=== PATIENT | male | born 1970 | race Caucasian/White ===

== ENCOUNTER 2017-12-17 00:28 | Observation (INO) | payer SELFPAY ==
[2017-12-17 01:31] LABS: #Basophils 0.1 thou/uL (0.0-0.2); #Eosinphils 0.3 thou/uL (0.0-0.7); #Lymphocytes 1.9 thou/uL (1.20-3.40); #Monocytes 0.6 thou/uL (0.11-0.59); #Neutrophils 5.1 thou/uL (1.40-6.50); %Basophils 1.1 % (0.0-1.0); %Eosinophils 3.4 % (0.0-10.0); %Lymphocytes 23.5 % (21.0-51.0); %Monocytes 7.7 % (0.0-10.0); %Neutrophils 64.3 % (42.0-75.0); Hemoglobin 13.4 g/dL (14.0-18.0); Mean Corpuscular HGB CONC 33.8 g/dL (32.0-36.0); Mean Corpuscular Hemoglobin 31.3 pg (27.0-31.0); Mean Corpuscular Volume 92.7 fL (78.0-98.0); Mean Platelet Volume 6.5 fL (7.4-10.4); Platelet Count 323 thou/uL (130-400); RBC Distribution Width 11.4 % (11.5-14.5); Red Blood Cell (RBC) Count 4.27 mill/uL (4.70-6.10); White Blood Cell (WBC) Count 7.9 thou/uL (4.8-10.8)
[2017-12-17 01:54] LABS: ALT (SGPT) 21 U/L (8-55); AST (SGOT) 23 U/L (5-34); Acetaminophen Less than 6.0 mcg/mL (10.0-30.0); Albumin 4.1 g/dL (3.5-5.0); Alcohol Less than 10 mg/dL (Less than 10); Alkaline Phosphatase 60 U/L (40-150); Anion Gap 11 mmol/L (10-20); BUN (Urea Nitrogen) 11 mg/dL (8.9-20.6); Bilirubin, Total 0.5 mg/dL (0.2-1.2); CK (CPK) 192 U/L (30-200); Calc. Creatinine Clearance 0 mL/min (70-130); Calcium 9.3 mg/dL (7.8-10.44); Carbon Dioxide 27 mmol/L (22-29); Chloride 101 mmol/L (98-107); Estimated GFR-MDRD 67; Globulin 2.9 g/dL (2.4-3.5); Glucose 114 mg/dL (70-105); Salicylate Less than 8.0 mg/dL (15.0-30.0); Sodium 136 mmol/L (136-145)
[2017-12-17 01:59] LABS: Potassium 2.7 mmol/L (3.5-5.1)
[2017-12-17] MEDS ORDERED: Potassium Chloride 20 MEQ TAB ONE (02:31)
[2017-12-17] MEDS ORDERED: Magnesium 2 GM/50 ML 2 GM in Premix Bag 1 BAG IVPB SCH (02:45)
[2017-12-17 03:45] LABS: Bilirubin Negative (Negative); Blood, Urine Negative (Negative); Clarity CLEAR (Clear); Glucose, Urine (Dipstick) Negative (Negative); Leukocyte Negative (Negative); Nitrite Negative (Negative); Protein, Urine (Dipstick) Negative (Neg-Trace); Specific Gravity, Urine 1.012 (1.002-1.036); Urobilinogen 0.2 mg/dL (0.2-1.0); pH, Urine 6.5 (5.0-9.0)
[2017-12-17 03:53] LABS: Amphetamine Not Detected (NotDetected); Barbiturates Screen Not Detected (NotDetected); Benzodiazepine Screen Not Detected (NotDetected); Cocaine Metabolite Screen Detected (NotDetected); Medtox Reader # READER 4; Methadone Not Detected (NotDetected); Methamphetamine Not Detected (NotDetected); Opiate Screen Not Detected (NotDetected); Oxycodone Screen Not Detected (NotDetected); Phencyclidine (PCP) Not Detected (NotDetected); THC/Cannabinoid Screen Not Detected (NotDetected); Tricyclic Screen Not Detected (NotDetected)
[2017-12-17 03:54] LABS: Medtox Control Line Valid? VALID (VALID)
[2017-12-17] MEDS ORDERED: D5 1/2 NS w/20 mEq KCL 1,000 ML ONE (04:35)
[2017-12-17 06:02] VITALS: BMI 25.1
[2017-12-17 07:01] LABS: Troponin I Less than 0.010 ng/mL (< 0.028)
[2017-12-17] MEDS ORDERED: Calcium Carbonate 500 MG ChewTAB PO PRN (08:26)
[2017-12-17] MEDS ORDERED: Loratadine 10 MG TAB PO PRN (08:26)
[2017-12-17] MEDS ORDERED: Bisacodyl 5 MG TAB PO PRN (08:26)
[2017-12-17] MEDS ORDERED: Acetaminophen 325 MG TAB PO PRN (08:26)
[2017-12-17] MEDS ORDERED: Lorazepam 1 MG TAB PO PRN (08:26)
[2017-12-17] MEDS ORDERED: Benzonatate 100 MG CAP PO PRN (08:26)
[2017-12-17] MEDS ORDERED: Ondansetron HCl/PF 4 MG/2 ML Vial IVP PRN (08:26)
[2017-12-17] MEDS ORDERED: traMADol HCl 50 MG TAB PO PRN (08:26)
[2017-12-17] MEDS ORDERED: Mag-Al 1200 mg/1200 mg/30 ML UDCUP PO PRN (08:26)
[2017-12-17] MEDS ORDERED: Nitroglycerin 0.4 MG TAB (25 Tab Bottle) SL PRN (08:26)
[2017-12-17] MEDS ORDERED: Diabetic Tussin 200 MG/10 ML UDCUP PO PRN (08:26)
[2017-12-17] MEDS ORDERED: hydrALAZINE 20 MG/ML VIAL SLOW IVP PRN (08:26)
[2017-12-17] MEDS ORDERED: Senokot 8.6 MG TAB PO PRN (08:26)
[2017-12-17] MEDS ORDERED: Enoxaparin Sodium 40 MG/0.4 ML SYRINGE SC SCH (09:00)
[2017-12-17 09:32] LABS: Potassium 3.4 mmol/L (3.5-5.1)
[2017-12-17 09:43] LABS: Troponin I Less than 0.010 ng/mL (< 0.028)
[2017-12-17] MEDS: Sodium Chloride 0.9% 1,000 ML IV SCH ×2 (10:10→12:06)
[2017-12-17 12:18] VITALS: BP 128/73; TEMP 98.9
[2017-12-17 12:37] LABS: Troponin I Less than 0.010 ng/mL (< 0.028)
--- NOTE | 2017-12-17 13:00 | CON ---
DATE OF CONSULTATION: 12/17/2017 HISTORY OF PRESENT ILLNESS: Patient is a 47-year-old gentleman, who presented with cocaine detoxification and was noted to have a slow heart rate. The patient has no previous cardiac history. The patient denies having any history of lightheadedness or dizziness. The patient denies having any history of syncope. The patient was admitted for cocaine use. He was noted to have a slow junctional rhythm. The patient denies having any chest discomfort. He denies having any PND or orthopnea. PAST MEDICAL HISTORY: Cocaine abuse. PAST SURGICAL HISTORY: Hiatal hernia surgery. MEDICATIONS: None. SOCIAL HISTORY: Long history of cocaine use. FAMILY HISTORY: Positive family history of coronary artery disease. ALLERGIES: No known drug allergies. REVIEW OF SYSTEMS: Ten-point system, otherwise, unremarkable. He does report decreased p.o. intake. PHYSICAL EXAMINATION: GENERAL: This is a well-developed gentleman in no acute distress. VITAL SIGNS: Blood pressure 103/53. NECK: No jugular venous distention. LUNGS: Clear to auscultation. HEART: Regular rate and rhythm, normal S1 and S2. ABDOMEN: Nondistended. EXTREMITIES: No edema. SKIN: Warm and dry. NEUROLOGIC EXAM: Nonfocal. VASCULAR: Radial pulses 2+. LABORATORY RESULTS: Sodium 136, potassium 2.7, chloride 101, bicarbonate 27, BUN 11, creatinine is 1.17, glucose 114, troponin less than 0.01. TSH 1.22. EKG reveals an ectopic atrial rhythm. Follow up EKG revealed marked sinus bradycardia. IMPRESSION: 1. Ectopic atrial rhythm. 2. Cocaine use. 3. Marked hypokalemia. This gentleman presents with an ectopic atrial rhythm. The patient is asymptomatic. The patient was markedly hypokalemic. We would replace his potassium. The life-threatening consequences of cocaine use have been explained to the patient. PLAN: 1. Replace potassium. 2. Monitor on telemetry. [facility]
--- NOTE | 2017-12-17 13:19 | HP ---
DATE OF ADMISSION: 12/17/2017 PRIMARY CARE PHYSICIAN: None. CHIEF COMPLAINT: "Needs cocaine detoxification". HISTORY OF PRESENT ILLNESS: Mr. Mccurdy is a 47-year-old male without any significant past medical hi story or medical followup, who walked into the ER for cocaine detoxification. He reports that he has been sober for 5 years, but started using again for 6 days and was feeling bad. He has not been eat ing or drinking and feeling very tired. He has not been able to sleep. He complained of generalized weakness, but denies any chest pain, palpitation, shortness of breath. He denies any recent illness es. He denied any other medical issues. In the emergency room, he was hemodynamically stable with a blood pressure 115/58 and a pulse of 57. His potassium was found to be low at 2.7 and there was some concern of junctional rhythm and sinus b radycardia in the EKG, so he was admitted to Medicine Service for further workup and observation. At the time of my evaluation, the patient is sleeping soundly and has no complaints when woken up. C ardiology has been consulted. Serial cardiac enzymes have been done and unremarkable. Repeat potass ium is 3.4 at 9:00 this morning. TSH is normal. PAST MEDICAL HISTORY: None. PAST SURGICAL HISTORY: Surgery for hiatal hernia in 1996. FAMILY HISTORY: Significant for coronary artery disease in both parents. His father ended up having a 4-vessel bypass surgery. He denies any family history of diabetes, hypertension, or cancer. PSYCHIATRIC HISTORY: None. SOCIAL HISTORY: Currently using drugs, but denies any IV drug use. He chews tobacco and denies any alcohol intake. ALLERGIES: No known medication allergies. CURRENT MEDICATIONS: None. REVIEW OF SYSTEMS: A 12-point review of system is done, it is negative except for those mentioned in the history and physical. LABORATORY DATA: CBC unremarkable. Serum chemistries unremarkable except for potassium at 2.7. Mag nesium was checked and was normal at 2.2. Serial cardiac enzymes, troponin less than 0.010 x3. TSH normal. Repeat potassium 3.4. Urinalysis is unremarkable. Urine drug screen positive for cocaine. A 12-lead EKG by my review shows sinus bradycardia with heart rate in the 50s with incomplete right b undle branch block. ST segments and T waves are normal. PHYSICAL EXAMINATION: VITAL SIGNS: Most recent vital signs, temperature 98.9, pulse 69-114, respirations 20, saturating 94 % to 96% on room air, and blood pressure 128/73. GENERAL: No acute distress, awake, alert, oriented x3. HEENT: Mucous membrane is moist and pink. No oropharyngeal exudate or erythema. Head is normocepha lic, atraumatic. Pupils equal, reactive to light and accommodation. Extraocular movement intact. NECK: Supple without any lymphadenopathy, JVD or bruit. CHEST: Clear to auscultation without any wheezing, rales, or rhonchi. Rate and rhythm is regular wi thout any murmur, rubs, or gallops. ABDOMEN: Soft, nontender, nondistended, positive bowel sounds. EXTREMITIES: Free of any cyanosis, clubbing, or edema. NEUROLOGIC: Nonfocal. SKIN: Free of any rashes or bruises. I feel warm and dry to touch. PSYCHIATRIC: Normal affect. IMPRESSION AND PLAN: 1. Hypokalemia, likely secondary to poor p.o. intake. Potassium has been supplemented and we will r echeck as the last value was done while he was getting the potassium supplementation. No other lab a bnormalities to suggest any inherent electrolyte metabolic issues. 2. Question of sinus bradycardia and junctional rhythm. Likely explained by either electrolyte abno rmalities with hypokalemia versus cocaine ingestion. I have ordered a transthoracic echocardiogram. No evidence to suggest ACS. Continue to monitor calcium and magnesium and follow the Cardiology rec ommendations. The patient has been educated about cocaine abstinence. 3. Cocaine abuse. The patient will be provided resources in the community for cocaine and substance rehabilitation. 4. Start gentle IV fluid and monitor on telemetry unit. 5. Code status: FULL CODE. 6. Deep venous thrombosis and gastrointestinal prophylaxis. DISPOSITION: Mr. Mccurdy is currently being admitted for hypokalemia and normal junctional rhythm/sin us bradycardia. If his potassium is improved and Cardiology clears him, he will be discharged later home today.
[2017-12-17 13:55] LABS: Potassium 3.7 mmol/L (3.5-5.1)
--- NOTE | 2017-12-18 01:59 | DIS ---
DATE OF ADMISSION: 12/17/2017 DATE OF DISCHARGE: 12/17/2017 CONDITION AT THE TIME OF DISCHARGE: Stable and improved. DISCHARGE DIAGNOSES: 1. Hypokalemia. 2. Sinus bradycardia secondary to cocaine abuse and hypokalemia. 3. Cocaine abuse. HOSPITAL COURSE: The patient was admitted earlier this morning when he presented to the ER for [facility] detoxification. Resources were provided. He was found to be hypokalemic, which was replaced and the discharge potassium was 3.7. He had some junctional rhythm on the EKG and Cardiology was consulted. Echo was ordered. Cardiology , Dr. Rivera has seen the patient and cleared him for discharge. Dr. Rivera and myself advised t he patient to stay off of cocaine and his arrhythmia was likely secondary to hypokalemia, which has b een reversed. Echocardiogram report is pending at this time of discharge. He is instructed to follow up with [facility] physician in one to two weeks for the result. He will establish care. Resources were provid ed for detox and substance abuse programs. Please see admission history and physical for further det ail including [id number] interaction.
--- NOTE | 2017-12-22 19:40 | EKG ---
Test Reason : Blood Pressure : / mmHG Vent. Rate : 048 BPM Atrial Rate : 048 BPM P-R Int : 166 ms QRS Dur : 112 ms QT Int : 432 ms P-R-T Axes : -81 012 -04 degrees QTc Int : 385 ms Unusual P axis, possible ectopic atrial bradycardia Abnormal ECG When compared with ECG of 17-DEC-2017 02:11, (Unconfirmed) Ectopic atrial rhythm has replaced Sinus rhythm Incomplete right bundle branch block is no longer Present Criteria for Septal infarct are no longer Present Confirmed by Travis JAVED ([id number]) on 12/22/2017 7:40:20 PM Referred By: ALEKSEY Confirmed By:Travis JAVED
== END 2017-12-17 18:45 | disposition home or self-care (01) ==
LOC: ERS 00:28 → 2SW 03:10
PROVIDERS: ADMIT Hospitalist; ATTEND Hospitalist
DX: E87.6 Hypokalemia (principal); F14.188 Cocaine abuse with other cocaine-induced disorder; R00.1 Bradycardia, unspecified; F17.220 Nicotine dependence, chewing tobacco, uncomplicated
CPT/HCPCS: 36415; 80053; 80306; 80307; 81003; 82550; 83735; 84443; 84484; 85025; 93005; 93010; 93306; 96361; 96365; 96366; 96368; 96372; 99406; G0378; J1650

== ENCOUNTER 2018-01-25 23:46 | Emergency (ER) | payer OTHER, SELFPAY ==
[2018-01-26] MEDS ORDERED: Acetaminophen 500 MG TAB ONE (00:43)
[2018-01-26] MEDS ORDERED: Ketorolac Tromethamine 60 MG/2 ML VIAL ONE (00:43)
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
== END 2018-01-26 01:22 | disposition home or self-care (01) ==
LOC: ERS 23:46
DX: S16.1XXA Strain of muscle, fascia and tendon at neck level, initial encounter (principal); F17.210 Nicotine dependence, cigarettes, uncomplicated; V43.92XA Unspecified car occupant injured in collision with other type car in traffic accident, initial encounter; W22.10XA Striking against or struck by unspecified automobile airbag, initial encounter
CPT/HCPCS: 70450; 72125; 96372; G0390; J1885

== ENCOUNTER 2018-11-15 12:01 | Inpatient (IN) | payer OTHER, SELFPAY ==
--- NOTE | 2018-11-15 12:52 | RAD ---
2 VIEWS RIGHT HIP: Date: 11/15/18 COMPARISON: None. HISTORY: Fall, trauma, pain. FINDINGS: There is an acute, impacted fracture involving the femoral neck at the base of the femoral head. No e vidence for dislocation. IMPRESSION: Femoral neck fracture. Orthopedic consultation advised. POS: OFF
[2018-11-15 13:12] LABS: #Basophils 0.1 thou/uL (0.0-0.2); #Eosinphils 0.1 thou/uL (0.0-0.7); #Lymphocytes 2.4 thou/uL (1.20-3.40); #Monocytes 0.4 thou/uL (0.11-0.59); #Neutrophils 5.1 thou/uL (1.40-6.50); %Basophils 0.7 % (0.0-1.0); %Eosinophils 1.1 % (0.0-10.0); %Lymphocytes 29.5 % (21.0-51.0); %Neutrophils 63.8 % (42.0-75.0); Hemoglobin 12.9 g/dL (14.0-18.0); Mean Corpuscular HGB CONC 34.9 g/dL (32.0-36.0); Mean Corpuscular Hemoglobin 31.6 pg (27.0-31.0); Mean Corpuscular Volume 90.4 fL (78.0-98.0); Mean Platelet Volume 6.9 fL (7.4-10.4); Platelet Count 257 thou/uL (130-400); RBC Distribution Width 11.9 % (11.5-14.5); Red Blood Cell (RBC) Count 4.07 mill/uL (4.70-6.10)
[2018-11-15] MEDS ORDERED: Morphine 4 MG/ML VIAL ONE (13:13)
[2018-11-15 13:36] LABS: ALT (SGPT) 20 U/L (8-55); AST (SGOT) 15 U/L (5-34); Albumin 4.2 g/dL (3.5-5.0); Alkaline Phosphatase 67 U/L (40-150); Anion Gap 14 mmol/L (10-20); BUN (Urea Nitrogen) 8 mg/dL (8.9-20.6); Bilirubin, Total 0.6 mg/dL (0.2-1.2); Calc. Creatinine Clearance 0 mL/min (70-130); Calcium 9.3 mg/dL (7.8-10.44); Carbon Dioxide 28 mmol/L (22-29); Chloride 97 mmol/L (98-107); Estimated GFR-MDRD 78; Globulin 2.6 g/dL (2.4-3.5); Glucose 93 mg/dL (70-105); Protein, Total 6.8 g/dL (6.0-8.3); Sodium 136 mmol/L (136-145)
[2018-11-15 13:39] LABS: Potassium 2.9 mmol/L (3.5-5.1)
--- NOTE | 2018-11-15 13:48 | RAD ---
EXAM: Chest one view: HISTORY: Right hip fracture COMPARISON: 03/30/2014 FINDINGS: Heart size: Within normal limits. Lungs: Clear of acute process. No evidence for pneumonia, pleural effusion, acute edema, or pneumothorax, or other significant acute process. IMPRESSION: No significant acute intrathoracic disease.
[2018-11-15 14:02] LABS: INR-International Normal Ratio 1.2; PTT 29.1 SEC (22.9-36.1); Prothrombin Time 14.8 SEC (12.0-14.7)
[2018-11-15 14:08] LABS: Magnesium 1.7 mg/dL (1.6-2.6)
[2018-11-15] MEDS ORDERED: Potassium Chloride 20 MEQ TAB ONE (14:17)
[2018-11-15] MEDS ORDERED: hydrALAZINE 20 MG/ML VIAL SLOW IVP PRN (14:34)
[2018-11-15] MEDS ORDERED: Dextrose 5% in Water 1,000 ML IV PRN (14:34)
[2018-11-15] MEDS ORDERED: Dextrose 50% Abboject 50 ML SYRINGE SLOW IVP PRN (14:34)
[2018-11-15] MEDS ORDERED: Morphine 2 MG/ML SYRINGE SLOW IVP PRN (14:34)
[2018-11-15] MEDS ORDERED: Ondansetron PF 4 MG/2 ML Vial IVP PRN (14:34)
[2018-11-15] MEDS ORDERED: traMADol HCl 50 MG TAB PO PRN (14:41)
[2018-11-15] MEDS ORDERED: Fentanyl 100 MCG/2 ML VIAL ONE (15:45)
[2018-11-15] MEDS ORDERED: Acetaminophen 500 MG TAB PO SCH (18:00)
[2018-11-15] MEDS: Sodium Chloride 0.9% 1,000 ML IV SCH (19:47)
[2018-11-15] MEDS: Senokot S 8.6-50 MG TAB PO SCH (19:51)
[2018-11-15] MEDS: traMADol HCl 50 MG TAB PO SCH ×2 (19:51→22:59)
[2018-11-15] MEDS: Famotidine/PF 20 mg/2ml Vial SLOW IVP SCH (19:52)
[2018-11-15 20:18] VITALS: BMI 22.1
[2018-11-15] MEDS ORDERED: CEFAZOLIN 2 GM in Premix Bag 1 BAG IVPB SCH (22:00)
[2018-11-15] MEDS: Ibuprofen 600 MG TAB PO SCH (22:58)
[2018-11-15] MEDS: Acetaminophen 1,000 MG in Premix Bag 1 BAG IVPB SCH (22:59)
--- NOTE | 2018-11-15 23:27 | PRG ---
DATE OF SERVICE: SUBJECTIVE: Patient is status post fall from 3 to 5 feet with a right femoral neck fracture. He was seen today and he was eating at that time. He reported no issues with his diet. Pain is well controlled. He is pending OR tomorrow morning with Dr. Hobbs for fixation of the right femoral neck fracture. OBJECTIVE: VITAL SIGNS: Patient is afebrile and hemodynamically stable. He is saturating 96% on room air. PULMONARY: Equal chest rise and fall. Clear breath sounds bilaterally. No signs of acute respiratory distress. CARDIAC: Regular rate and rhythm. EXTREMITIES: 2+ pulses in all extremities. No significant swelling noted. NEUROLOGIC: GCS is 15. ASSESSMENT: 1. Status post mechanical fall from 3 to 5 feet. 2. Right femoral neck fracture. 3. History of cocaine use. PLAN: Patient to receive a urine drug screen. He voids. He has a regular diet, but he will be n.p.o. after midnight as he is going to the OR with Orthopedic Surgery for fixation of his right femoral neck fracture. Postoperatively, he will work with Physical and Occupational Therapy and he will be considered for placement at an acute rehab facility. Job ID: [id number]
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
[2018-11-16] MEDS: Sodium Chloride 0.9% 1,000 ML IV SCH ×3 (04:00→15:56)
[2018-11-16 04:24] LABS: #Eosinphils 0.4 thou/uL (0.0-0.7); #Lymphocytes 2.8 thou/uL (1.20-3.40); #Monocytes 0.5 thou/uL (0.11-0.59); #Neutrophils 7.6 thou/uL (1.40-6.50); %Basophils 0.4 % (0.0-1.0); %Eosinophils 3.1 % (0.0-10.0); %Lymphocytes 24.8 % (21.0-51.0); %Neutrophils 67.7 % (42.0-75.0); Hemoglobin 12.4 g/dL (14.0-18.0); Mean Corpuscular HGB CONC 34.6 g/dL (32.0-36.0); Mean Corpuscular Hemoglobin 31.8 pg (27.0-31.0); Mean Corpuscular Volume 91.9 fL (78.0-98.0); Mean Platelet Volume 6.7 fL (7.4-10.4); Platelet Count 214 thou/uL (130-400); White Blood Cell (WBC) Count 11.3 thou/uL (4.8-10.8)
[2018-11-16 04:42] LABS: Anion Gap 9 mmol/L (10-20); BUN (Urea Nitrogen) 9 mg/dL (8.9-20.6); Calc. Creatinine Clearance 90 mL/min (70-130); Calcium 8.4 mg/dL (7.8-10.44); Carbon Dioxide 29 mmol/L (22-29); Chloride 101 mmol/L (98-107); Estimated GFR-MDRD 71; Glucose 113 mg/dL (70-105); Magnesium 1.9 mg/dL (1.6-2.6); Phosphorus 3.5 mg/dL (2.3-4.7); Potassium 3.4 mmol/L (3.5-5.1); Sodium 136 mmol/L (136-145)
[2018-11-16] MEDS: Ibuprofen 600 MG TAB PO SCH ×2 (05:24→15:02)
[2018-11-16] MEDS: traMADol HCl 50 MG TAB PO SCH ×4 (05:24→22:59)
[2018-11-16] MEDS: Acetaminophen 1,000 MG in Premix Bag 1 BAG IVPB SCH ×3 (05:25→17:32)
[2018-11-16] MEDS ORDERED: Magnesium Sulfate 2 GM in Sodium Chloride 0.9% 100 ML IVPB SCH (07:45)
[2018-11-16] MEDS ORDERED: Potassium Chloride 20 MEQ in Premix Bag 1 BAG IVPB SCH ×2 (07:45)
[2018-11-16] MEDS ORDERED: Ondansetron PF 4 MG/2 ML Vial ONE (07:48)
[2018-11-16] MEDS ORDERED: PROPOFOL 200 MG/20 ML VIAL ONE (07:48)
[2018-11-16] MEDS ORDERED: Lidocaine 1% PF 5 ML VIAL ONE (07:48)
[2018-11-16] MEDS ORDERED: Magnesium 2 GM/50 ML 2 GM in Premix Bag 1 BAG IVPB SCH (08:00)
[2018-11-16] MEDS: Famotidine/PF 20 mg/2ml Vial SLOW IVP SCH ×2 (08:57→20:03)
[2018-11-16] MEDS: Senokot S 8.6-50 MG TAB PO SCH (09:09)
[2018-11-16] MEDS: Polyethylene Glycol 3350 17 GM Packet PO SCH (09:09)
[2018-11-16 10:21] LABS: Amphetamine Detected (NotDetected); Barbiturates Screen Not Detected (NotDetected); Benzodiazepine Screen Not Detected (NotDetected); Cocaine Metabolite Screen Detected (NotDetected); Medtox Control Line Valid? VALID (VALID); Medtox Reader # READER 4; Methadone Not Detected (NotDetected); Methamphetamine Detected (NotDetected); Opiate Screen Detected (NotDetected); Oxycodone Screen Not Detected (NotDetected); Phencyclidine (PCP) Not Detected (NotDetected); THC/Cannabinoid Screen Not Detected (NotDetected); Tricyclic Screen Not Detected (NotDetected)
[2018-11-16] MEDS ORDERED: Fentanyl 250 MCG/5 ML VIAL ONE (13:03)
[2018-11-16] MEDS ORDERED: Midazolam HCl 2 mg/2 ml Vial ONE (13:03)
[2018-11-16] MEDS ORDERED: Neomycin-Polymyxin 1 ML AMP ONE (13:09)
[2018-11-16] MEDS ORDERED: Bupivacaine HCl 0.5%/Epinephrine 1:200,000/PF 30 ml Vial ONE (13:43)
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
[2018-11-16] MEDS ORDERED: Ondansetron PF 4 MG/2 ML Vial IVP PRN (14:58)
[2018-11-16] MEDS ORDERED: Milk Of Magnesia 30 ML UDCUP PO PRN (14:58)
[2018-11-16] MEDS ORDERED: Cepastat Lozenges 1 LOZ PO PRN (14:58)
[2018-11-16] MEDS ORDERED: Fleet Enema 133 ML BOT PR PRN (14:58)
[2018-11-16] MEDS ORDERED: Bisacodyl 10 MG SUPP PR PRN (14:58)
[2018-11-16] MEDS ORDERED: Ondansetron ODT 4 MG TAB PO PRN (14:58)
[2018-11-16] MEDS ORDERED: Sodium Chloride 0.9% 1,000 ML IV SCH (15:00)
--- NOTE | 2018-11-16 15:00 | RAD ---
Exam: Right hip 2 views: HISTORY: Status post ORIF right hip COMPARISON: 11/15/2018 FINDINGS: Intraoperative placement of 2 internal fixation screws stabilizing a subcapital right femoral neck fr acture. IMPRESSION: Status post ORIF right hip.
[2018-11-16] MEDS ORDERED: Promethazine HCl 25 MG/ML VIAL IM PRN (15:01)
[2018-11-16] MEDS ORDERED: Ondansetron HCl/PF 4 MG/2 ML Vial IVP PRN (15:01)
[2018-11-16] MEDS ORDERED: HYDROmorphone 2 MG/ML VIAL SLOW IVP PRN (15:01)
[2018-11-16] MEDS ORDERED: Promethazine HCl 25 MG/ML VIAL SLOW IVP PRN (15:01)
[2018-11-16] MEDS ORDERED: Ketorolac Tromethamine 30 MG/ML VIAL ONE (15:10)
[2018-11-16] MEDS ORDERED: Fentanyl 100 MCG/2 ML VIAL ONE (15:16)
--- NOTE | 2018-11-16 16:56 | OP ---
DATE OF PROCEDURE: 11/16/2018 PREOPERATIVE DIAGNOSIS: Impacted femoral neck fracture of the right hip. POSTOPERATIVE DIAGNOSIS: Impacted femoral neck fracture of the right hip. PROCEDURE PERFORMED: Percutaneous pinning of a subcapital femoral neck fracture of the right hip. ANESTHESIA: General. DESCRIPTION OF PROCEDURE: The patient was given preoperative IV antibiotics, taken to the operating room, placed in supine position on the fracture table. No traction was applied to the right lower extremity. The C-arm verified good alignment of the impacted femoral neck fracture of the right hip. The lateral aspect of the right hip and thigh was sterilely prepped and draped. A 1.5 cm incision was made on the lateral aspect of the thigh, and under fluoroscopic visualization, 2 guide pins were placed through the lateral aspect of the femur into the femoral neck, crossing the fracture, and into the femoral head, made sure that the pins were in good position in the femoral head and the pins were measured for length. The lateral cortex was over-reamed and two 6.5 cannulated screws were inserted over the guide pins, which provided excellent fixation into the femoral neck and head. The guide pins were removed. The entire proximal aspect of the femur was inspected under fluoroscopy in AP and lateral views while maximally internally and externally rotating the right foot. This showed good position of the pins and excellent fixation of the femoral neck. The wound was then irrigated with antibiotic solution and was closed using skin andrés. The wound was then infiltrated with 20 mL of 0.5% Marcaine with epinephrine. Sterile dressing was applied. The patient was taken out of the fracture table. He was awakened, extubated, and transferred to recovery in stable condition. ESTIMATED BLOOD LOSS: None. COMPLICATIONS: None. Job ID: [id number]
[2018-11-16] MEDS: CEFAZOLIN 2 GM in Premix Bag 1 BAG IVPB SCH (17:32)
[2018-11-16] MEDS ORDERED: Ketorolac Tromethamine 30 MG/ML VIAL IVP SCH (18:00)
[2018-11-16] MEDS: Ferrous Gluconate 324 MG TAB PO SCH (20:04)
[2018-11-16] MEDS ORDERED: Senokot S 8.6-50 MG TAB PO SCH (21:00)
[2018-11-16] MEDS: Ibuprofen 800 MG TAB PO SCH (22:57)
[2018-11-16] MEDS: Acetaminophen 500 MG TAB PO SCH (23:00)
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
[2018-11-17] MEDS: CEFAZOLIN 2 GM in Premix Bag 1 BAG IVPB SCH (01:13)
[2018-11-17 04:47] LABS: #Monocytes 0.3 thou/uL (0.11-0.59); #Neutrophils 7.3 thou/uL (1.40-6.50); %Basophils 0.1 % (0.0-1.0); %Eosinophils 0.5 % (0.0-10.0); %Lymphocytes 11.2 % (21.0-51.0); %Monocytes 3.8 % (0.0-10.0); %Neutrophils 84.4 % (42.0-75.0); Hemoglobin 11.4 g/dL (14.0-18.0); Mean Corpuscular HGB CONC 34.4 g/dL (32.0-36.0); Mean Corpuscular Hemoglobin 31.9 pg (27.0-31.0); Mean Corpuscular Volume 92.7 fL (78.0-98.0); Mean Platelet Volume 7.1 fL (7.4-10.4); Platelet Count 195 thou/uL (130-400); Red Blood Cell (RBC) Count 3.57 mill/uL (4.70-6.10); White Blood Cell (WBC) Count 8.7 thou/uL (4.8-10.8)
[2018-11-17 05:09] LABS: Anion Gap 8 mmol/L (10-20); BUN (Urea Nitrogen) 9 mg/dL (8.9-20.6); Calc. Creatinine Clearance 110 mL/min (70-130); Calcium 8.2 mg/dL (7.8-10.44); Carbon Dioxide 27 mmol/L (22-29); Chloride 103 mmol/L (98-107); Estimated GFR-MDRD 90; Glucose 158 mg/dL (70-105); Magnesium 1.9 mg/dL (1.6-2.6); Phosphorus 1.8 mg/dL (2.3-4.7); Potassium 3.8 mmol/L (3.5-5.1); Sodium 134 mmol/L (136-145)
[2018-11-17] MEDS: traMADol HCl 50 MG TAB PO SCH ×3 (05:14→17:06)
[2018-11-17] MEDS: Ibuprofen 800 MG TAB PO SCH ×2 (05:14→12:27)
[2018-11-17] MEDS: Acetaminophen 500 MG TAB PO SCH ×3 (05:14→17:07)
[2018-11-17] MEDS ORDERED: Potassium Phosphate 30 MMOL in Sodium Chloride 0.9% 500 ML IVPB SCH (05:45)
[2018-11-17] MEDS: Famotidine/PF 20 mg/2ml Vial SLOW IVP SCH (07:46)
[2018-11-17] MEDS: Ferrous Gluconate 324 MG TAB PO SCH (07:47)
[2018-11-17] MEDS: Polyethylene Glycol 3350 17 GM Packet PO SCH (07:47)
[2018-11-17] MEDS ORDERED: Multivitamin W/ Minerals 1 TAB PO SCH (09:00)
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
--- NOTE | 2018-11-17 12:42 | OP ---
DATE OF PROCEDURE: 11/17/2018 SUBJECTIVE: Mr. Mccurdy states that his right hip is feeling much better since surgery. He was able to get up with therapy with some pain, but much better than prior to surgery. OBJECTIVE: VITAL SIGNS: The patient has been afebrile. Vital signs have been stable. EXTREMITIES: The right lower extremity is neurovascularly intact. ASSESSMENT AND PLAN: The patient will continue to work with Physical Therapy as soon as he is independently able to get out of bed and ambulate with crutches and able to control the pain with pain pills. He maybe discharged, that could be as soon as today and possibly tomorrow. He will follow in my office next week. Job ID: [id number]
[2018-11-17 15:56] VITALS: BP 132/78; TEMP 98.4
--- NOTE | 2018-11-17 17:24 | DIS ---
DATE OF ADMISSION: 11/15/2018 DATE OF DISCHARGE: 11/17/2018 PREMIUM REPRESENTATIVE: Dr. Hobbs with Orthopedic Surgery. ADMITTING DIAGNOSES: 1. Status post fall from a trailer. 2. Right femoral neck fracture. DISCHARGE DIAGNOSES: 1. Status post fall from a trailer. 2. Right femoral neck fracture. OPERATIONS AND PROCEDURES: Percutaneous pinning of subcapital femoral neck fracture on 11/16/[address] Hobbs. Please see separate dictation for operative report. HISTORY AND HOSPITAL COURSE: A 48-year-old man fell of a trailer sustaining the aforementioned injury for which he underwent an uneventful percutaneous pinning of subcapital femoral neck fracture yesterday. Following surgery, he is admitted to general surgical floor. Postop day #1, he is ambulating with minimum difficulty using a walker. His pain is adequately controlled on oral analgesics. He is tolerating diet, having normal bowel and urinary function. He has remained hemodynamically stable and afebrile through this hospitalization. Vital signs currently include blood pressure 132/78, pulse 61, respiratory rate 16, temperature 98.4 degrees Fahrenheit, and oxygen saturation 96% on room air. DISCHARGE INSTRUCTIONS: The patient will be discharged home today with the following instructions; 1. He follows up with Dr. Hobbs in his clinic in 2 weeks. 2. He is instructed to take acetaminophen 1000 mg p.o. q.6 hours p.r.n. pain, alternating this with ibuprofen 800 mg p.o. q.8 hours p.r.n. pain. Additionally, he was given a prescription for tramadol 50 mg #30 to be taken 1 to 2 p.o. q.6 hours p.r.n. pain. He is to call Dr. Hobbs with any questions or problems. He is instructed to ambulate daily to avoid complications of venous thromboembolism. Above findings discussed with the patient, who indicates understanding information given. I have answered his questions. The patient has expressed gratitude for the care rendered to him during this hospitalization and surgery. Job ID: [id number]
[2018-11-19] MEDS ORDERED: Ibuprofen 600 MG TAB PO SCH (06:00)
--- NOTE | 2018-11-19 18:08 | CON ---
DATE OF CONSULTATION: 11/16/2018 HISTORY OF PRESENT ILLNESS: Mr. Mccurdy is a 48-year-old white male, fell from a trailer onto his right hip. He fell 2 days prior to admission. The patient tried to ambulate, but had pain in the right hip and groin area. Pain increased to the point that he presented to the emergency room. The patient was seen. X-rays obtained showed an impacted femoral neck fracture of the right hip. PAST MEDICAL HISTORY AND MEDICAL ILLNESSES: None. PAST SURGICAL HISTORY: Hiatal hernia. SOCIAL HISTORY: The patient chews tobacco. Occasional alcohol. Uses cocaine on a regular basis. ALLERGIES: NONE. PHYSICAL EXAMINATION: GENERAL: The patient is a pleasant male, alert and oriented x3. Cooperative with the examination. EXTREMITIES: The patient has pain with any attempted movement of the right hip. Right lower extremity is neurovascularly intact. Skin over the right hip is in good condition. IMPRESSION: 1. Impacted femoral neck fracture of the right hip. 2. History of cocaine use. 3. Hypokalemia. PLAN: The patient will require percutaneous pinning of the femoral neck fracture of the right hip. This will help stabilize the hip, significantly decrease the chance for the fracture to displace. Potential risks with the condition of surgery include, but are not limited to infection, bleeding, pain, damage to blood vessels and nerves, nonunion, malunion, the patient may require additional surgery. The patient's questions were answered and agreed to the procedure. Job ID: [id number]
== END 2018-11-17 18:40 | disposition home or self-care (01) | DRG 482 ==
LOC: ERS 12:01 → SURG A 14:34
PROVIDERS: ADMIT Specialist; ATTEND Specialist
PROC: 0QS634Z Reposition Right Upper Femur with Internal Fixation Device, Percutaneous Approach (ICD-10-PCS; principal; 2018-11-17)
DX: S72.001A Fracture of unspecified part of neck of right femur, initial encounter for closed fracture (principal); Z98.890 Other specified postprocedural states; F17.220 Nicotine dependence, chewing tobacco, uncomplicated; E87.6 Hypokalemia; V87.8XXA Person injured in other specified noncollision transport accidents involving motor vehicle (traffic), initial encounter
CPT/HCPCS: 36415; 71045; 76000; 80048; 80053; 80306; 80307; 83735; 84100; 85025; 85610; 85730; 86850; 86900; 86901; 93005; 94760; 96361; 96374; 96375; C1713; C1769; J0131; J0670; J0690; J1885; J2001; J2250; J2270; J2405; J2704; J3010; J3475; J3480; J3490; J7050; S0028